=== PATIENT | female | born 1960 | race Caucasian/White ===

== ENCOUNTER → 2022-04-17 15:19 | Outpatient (CLI) | payer SELFPAY ==
--- NOTE | 2022-04-17 15:26 | DI.RAD.S_ITS ---
PROCEDURE: XR CHEST 1V INDICATIONS: CHEST XRAY TECHNIQUE: One view of the chest was acquired. COMPARISON: [facility], , CHEST 2 VIEW, 06/12/2014, 15:46. FINDINGS: Surgical changes and devices: None. Lungs and pleura: Lungs are clear. No pleural effusions or pneumothorax. Mediastinum: Mediastinal contours appear normal. Heart size is normal. Bones and chest wall: No suspicious bony lesions. Overlying soft tissues appear unremarkable. IMPRESSION: No acute cardiopulmonary abnormality. Dictated by: Brandin Salazar M.D. on 04/17/2022 at 17:27 Approved by: Brandin Salazar M.D. on 04/17/2022 at 17:28
== END ==
PROVIDERS: Family Provider Family Medicine; PCP Family Medicine; Referring Provider Nurse Practitioner; Visit Provider Nurse Practitioner
DX: Z01.818 Encounter for other preprocedural examination (principal)
CPT/HCPCS: 71045; 93005; 93010

== ENCOUNTER → 2022-04-24 14:11 | Outpatient (CLI) | payer SELFPAY ==
--- NOTE | 2022-04-24 | DI.MG.S_ITS ---
BILATERAL DIGITAL SCREENING MAMMOGRAM 3D/2D WITH CAD WITH AUGMENTATION: 04/24/2022 CLINICAL: Patient presents for routine screening. S/P bilateral augmentation. No prior exams were available for comparison. There are scattered areas of fibroglandular density in both breasts (category b / 25%-50% glandular tissue). Current study was also evaluated with a Computer Aided Detection (CAD) system. There is a 0.5 cm oval equal density focal asymmetry in the right breast at 9 o'clock middle depth. No other significant masses, calcifications, or other findings are seen in either breast. Bilateral implants are intact. IMPRESSION: INCOMPLETE: NEEDS ADDITIONAL IMAGING EVALUATION The 0.5 cm oval equal density focal asymmetry in the right breast resembles a cyst or a lymph node and is indeterminate. Additional views with possible ultrasound are recommended. Based on the Tyrer Cuzick model (a risk assessment model) the patient's lifetime risk is 4.1% and her 10 year risk is 1.8%. According to the ACR, ACS, and NCCN guidelines, an annual breast MRI exam along with mammogram is recommended if the patient's lifetime risk is 20% or greater. This exam was interpreted at Station ID: [id number]. NOTE: For mammograms, a report in lay terms will be sent to the patient. Approximately 15% of breast malignancies will not be visualized mammographically. In the management of a palpable breast mass, a negative mammogram must not discourage biopsy of a clinically suspicious lesion. Electronically Signed By: Marcos Luna M.D. aty/:04/24/2022 15:15:26 letter sent: Additional Imaging Needed ACR BI-RADS Category 0: Incomplete 3340F
== END ==
PROVIDERS: Family Provider Family Medicine; PCP Nurse Practitioner; Referring Provider Nurse Practitioner; Visit Provider Nurse Practitioner
DX: Z12.31 Encounter for screening mammogram for malignant neoplasm of breast (principal); Z98.82 Breast implant status
CPT/HCPCS: 77063; 77067

== ENCOUNTER 2023-11-15 18:23 | Emergency (ER) | payer MEDICARE, SELFPAY ==
[2023-11-15 18:28] VITALS: BP 152/66; PULSE 64; RESP 18; TEMP 36.8; O2SAT 99; BMI 22.8
--- NOTE | 2023-11-15 18:39 | DI.RAD.S_ITS ---
PROCEDURE: XR KUB INDICATIONS: fell asleep with sex toy in rectum. TECHNIQUE: One view of the abdomen acquired. COMPARISON: None. FINDINGS: Surgical changes and devices: There is a postoperative clip seen adjacent to the right pubis. Bowel: Bowel gas pattern is normal. No radiopaque foreign bodies are seen. Soft tissues: No suspicious abdominal calcifications. Visualized solid organ contours appear normal in size. Bones: No suspicious bony lesions. Age-appropriate bony degenerative changes are seen. IMPRESSION: No radiopaque foreign body is seen on this study. Dictated by: Juwan Cline M.D. on 11/15/2023 at 18:02 Approved by: Juwan Cline M.D. on 11/15/2023 at 18:03
--- NOTE | 2023-11-15 20:13 | ED.ABDPAIN ---
HPI - Abdominal Pain General Chief Complaint: Abdominal Pain Stated Complaint: toy stuck in rectum t-2 Time Seen by Provider: 11/15/23 18:37 Source: patient Mode of arrival: Ambulatory History of Present Illness HPI narrative: Patient presents concerned that there is a sex toy stuck in her rectum. Two days ago patient finished phone sex with her boyfriend and fell asleep. She states that she woke up and continued about her day, forgetting that she has been using the toy. Later in the day she remembered the toy's use but could not find the strings to the object. She tried to insert her finger but could not feel any object. She has not been able to find the toy and is concerned that it may be in her intestines. Reports several bowel movements today, but no foreign body found. Related Data Home Medications Medication Instructions Recorded Confirmed Acetaminophen/Butalbital/Caf 1 tab NG TIDP ##0 01/01/11 04/04/23 (FIORICET) IBUPROFEN (IBU) 400 mg PO TID ##0 01/01/11 04/04/23 Valtrex PO 04/04/23 04/04/23 estrogen vaginal cream PO 04/04/23 04/04/23 Allergies Allergy/AdvReac Type Severity Reaction Status Date / Time Penicillin Allergy Mild UNKNOWN Uncoded 11/15/23 18:36 Patient History Surgical History Status post tubal ligation Status post dilation and curettage Family History Brother Alcoholism Brother Multiple sclerosis Father Alcoholism Congestive heart failure Alcoholic dementia Mother Alcoholism Multiple sclerosis COPD (chronic obstructive pulmonary disease) Tobacco use disorder Social History Smoking Status: Former smoker Smoking Status: Former smoker Exam Initial Vital Signs Initial Vital Signs: Vital Signs Temperature 98.2 F 11/15/23 18:28 Pulse Rate 64 11/15/23 18:28 Respiratory Rate 18 11/15/23 18:28 Blood Pressure 152/66 H 11/15/23 18:28 Pulse Oximetry 99 11/15/23 18:28 Oxygen Delivery Method Room Air 11/15/23 18:28 Const: Awake, alert, no acute distress, nontoxic appearing GI: Soft, nontender, nondistended Rectal: Small nonthrombosed hemorrhoids present, tone intact, no foreign body palpated Skin: Warm, Dry, intact, no rashes Neuro: AO x3, CN II-XII grossly intact, moves all extremities Course Orders Ordered: ED Orders 11/15/23 20:13 CT abdomen pelvis wo con Stat Vital Signs Vital signs: Vital Signs - 8 hr 11/15/23 21:31 Pulse Rate 68 Respiratory Rate 15 Blood Pressure 151/73 H Pulse Oximetry 98 Oxygen Delivery Method Room Air MDM - Abdominal Pain Imaging Data CT scan - abdomen/pelvis: Radiologist's Impression: PROCEDURE: CT ABDOMEN PELVIS WO CON INDICATIONS: PT STATES RECTAL FOREIGN BODY, NEG XR TECHNIQUE: Axial sections were acquired from the lung bases to the pubic symphysis. Coronal and sagittal reformats were performed. For radiation dose reduction, the following was used: automated exposure control, adjustment of mA and/or kV according to patient size. COMPARISON: None. FINDINGS: Image quality: Diagnostic. Lower Chest: No significant findings. URINARY: Right Kidney: No stones or hydronephrosis. Right Ureter: No hydroureter. Left Kidney: No stones or hydronephrosis. Left Ureter: No hydroureter. Bladder: Normal wall thickness. No stones. ABDOMEN: Liver: No contour-deforming solid mass. Gallbladder: No radiopaque gallstones or wall thickening. Biliary ducts: No biliary dilation. Pancreas: No ductal dilation. Spleen: Size is within normal limits. Adrenal Glands: No adrenal nodules. Stomach and Bowel: Normal colonic caliber, without significant wall thickening. Colonic diverticulosis without acute inflammation. Questionable increased soft tissue fullness in the rectum. No hyperdense foreign body visualized. Peritoneum: No abnormal intraperitoneal fluid. No free air. Ventral Wall: No hernia. Abdominal Nodes: No enlarged retroperitoneal or mesenteric lymph nodes. Vessels: Aorta and inferior vena cava are normal in size. PELVIS: Pelvic Organs: Unremarkable. Pelvic Nodes: Unremarkable. Miscellaneous: No inguinal hernias are seen. Bones: Unremarkable. Degenerative changes of visualized spine without acute vertebral body compression fracture. IMPRESSION: Questionable increased soft tissue fullness in the rectum, favored to be physiologic, however foreign body cannot be definitively excluded. No hyperdense foreign body visualized rectum or colon. Approved by: Staci Boone M.D.,Ph.D. on 11/15/2023 at 21:00 [facility] Narrative Medical decision making narrative: Possible rectal foreign body. No obvious physical exam findings. Digital sweep of rectal vault with no palpated foreign body. No foreign body seen on x-ray or CT. Patient informed of imaging findings, she will continue to look for the object at home. Discharge Plan Departure Patient Disposition: Home Clinical Impression: Feared condition not demonstrated Instructions: DI for General Condition Activity Restrictions/Additional Instructions: There was no foreign body seen on x-ray or CT imaging. I do not know where the object is, but it was no where in the GI tract. Prescriptions: No Action estrogen vaginal cream PO Valtrex PO Acetaminophen/Butalbital/Caf (FIORICET) 1 tab NG TIDP Qty: 0 IBUPROFEN (IBU) 400 mg PO TID Qty: 0 Referrals: Cata Maldonado ARNP [Primary Care Provider] - Stand Alone Forms: Patient Portal/API
[2023-11-15 21:31] VITALS: BP 151/73; PULSE 68; RESP 15; O2SAT 98
== END 2023-11-15 21:32 | disposition home or self-care (01) ==
PROVIDERS: Emergency Provider Emergency Medicine; Family Provider Family Medicine; PCP Nurse Practitioner
DX: T18.5XXA Foreign body in anus and rectum, initial encounter (principal)
CPT/HCPCS: 74018; 74176; 99284

== ENCOUNTER → 2024-11-24 16:34 | Outpatient (CLI) | payer MEDICARE, SELFPAY ==
[2024-11-24 17:54] LABS: Add Manual Diff / Slide Review NO; Basophils Absolute Auto 100 /uL (0-100); Basophils Percent Auto 0.7 % (0-2); Eosinophils Absolute Auto 200 /uL (0-450); Eosinophils Percent Auto 3.1 % (2-4); Hematocrit 43.7 % (36-46); Hemoglobin 14.6 g/dL (12.0-16.0); Lymphocytes Absolute Auto 1500 /uL (1100-4500); Lymphocytes Percent Auto 21.9 % (25-40); Mean Corpuscular HGB Conc 33.3 % (30-36); Mean Corpuscular Hemoglobin 30.4 PG (26-34); Mean Corpuscular Volume 91.1 fL (80-100); Monocytes Absolute Auto 800 /uL (0-900); Monocytes Percent Auto 11.9 % (3-14); Neutrophils Absolute Auto 4200 /uL (1500-7000); Neutrophils Percent Auto 62.4 % (50-75); Platelet Count 257 X10^3/uL (150-400); Red Cell Distribution Width 13.3 % (11.6-14.8); White Blood Cell Count 6.8 X10^3/uL (4.5-11.0)
[2024-11-24 18:13] LABS: Alanine Aminotransferase 35 IU/L (<35); Albumin 4.6 g/dL (3.5-5.0); Albumin Globulin Ratio 1.8 (1.0-2.8); Alkaline Phosphatase 92 U/L (38-126); Aspartate Aminotransferase 35 IU/L (14-36); BUN Creatinine Ratio 27.5 (6-22); Bilirubin Total 0.5 mg/dL (0.2-1.3); Blood Urea Nitrogen 19 mg/dL (7-17); Calcium 9.6 mg/dL (8.4-10.2); Carbon Dioxide 24 mmol/L (22-32); Chloride 106 mmol/L (98-107); Estimated Glomerular Filt Rate > 60 mL/min (>60); Globulin 2.5 g/dL (1.7-4.1); Glucose 93 mg/dL (70-99); HEMOLYSIS < 15 (0-50); Potassium 4.6 mmol/L (3.4-5.1); Sodium 138 mmol/L (137-145); Total Protein 7.1 g/dL (6.3-8.2)
== END ==
PROVIDERS: Family Provider Family Medicine; Referring Provider Physician Assistant; Visit Provider Physician Assistant
DX: R15.9 Full incontinence of feces (principal); K52.9 Noninfective gastroenteritis and colitis, unspecified
CPT/HCPCS: 36415; 80053; 84443; 85025

== ENCOUNTER → 2024-12-01 13:34 | Outpatient (CLI) | payer MEDICARE, SELFPAY | PROVIDERS: Family Provider Family Medicine; Referring Provider Physician Assistant; Visit Provider Physician Assistant | DX: R19.5 Other fecal abnormalities (principal); K52.9 Noninfective gastroenteritis and colitis, unspecified | CPT/HCPCS: 83993; 87177; 87324; 87338 ==

== ENCOUNTER 2024-12-30 09:27 | Emergency (ER) | payer MEDICARE, SELFPAY ==
[2024-12-30] VITALS (19 sets, daily range): BP systolic 131–174; BP diastolic 61–96; PULSE 59–81; RESP 16–20; TEMP 37; O2SAT 95–100; BMI 22.0
--- NOTE | 2024-12-30 09:53 | ED.GENADULT ---
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 The patient reports experiencing diarrhea for approximately 4.5 months, with symptoms worsening over the past 5-6 weeks. She describes having explosive diarrhea and leakage, with 18 episodes in the last 24 hours. The patient also complains of rectal soreness by the end of the day. Additionally, she reports feeling weak, confused, and dizzy, with body aches all over, particularly in her arms. These severe symptoms have been ongoing for about two weeks. The patient mentions experiencing shortness of breath for about a week. She denies fever, blood in stool, abdominal pain, nausea, or vomiting. The patient was seen at a clinic three weeks ago and subsequently diagnosed with Giardia and H. pylori on December 14. She has been on treatment for these conditions since then, finishing a course of Flagyl and with tetracycline started three days ago. The patient reports taking high doses of qrvy-hqw-zsehhzd Imodium to manage her symptoms. She mentions a trip to [place] in June but is unsure if it's related to her current condition. The patient has three dogs at home and uses city water. She denies alcohol consumption or recreational drug use. The patient's last blood work was done on December 14, and she was supposed to establish primary care today. Related Data Home Medications ?Medication ?Instructions ?Recorded ?Confirmed IBUPROFEN (IBU) 400 mg PO TID ##0 01/01/11 11/24/24 estrogen vaginal cream PO 04/04/23 11/24/24 acyclovir 400 mg tablet 400 mg PO DAILY 11/24/24 11/24/24 smoluryyoo-yhddeieqdcerp-gqwkytna 1 cap PO BID 11/24/24 11/24/24 50 mg-300 mg-40 mg capsule Allergies Allergy/AdvReac Type Severity Reaction Status Date / Time Penicillin Allergy Mild UNKNOWN Uncoded 12/30/24 09:46 Patient History Surgical History Status post tubal ligation Status post dilation and curettage Family History Brother Alcoholism Brother Multiple sclerosis Father Alcoholism Congestive heart failure Alcoholic dementia Mother Alcoholism Multiple sclerosis COPD (chronic obstructive pulmonary disease) Tobacco use disorder Exam Narrative Exam Narrative: VS as noted above Focused physical exam as follows: General: Well developed, well nourished, no acute distress HEENT: pink palpebral conjunctiva, anicteric sclera, SCOUT, dry mucous membranes, no JVD, no cervical lymphadenopathy Lungs: no respiratory distress, clear to auscultation without wheezes or crackles; equal breath sounds Heart: normal rate, regular rhythm, no appreciable murmurs Abdomen: soft, nontender, no rebound or rigidity Musculoskeletal: no gross deformities with full ROM in all extremities, no pedal edema Skin: pink, warm; no rashes Neuro: ?AAOx3, GCS 15, nonfocal exam Psyche: no SI/HI, normal affect Initial Vital Signs Initial Vital Signs: Vital Signs Pulse Oximetry 96 12/30/24 09:32 Course Orders Ordered: Discontinued Medications Sodium Chloride (Normal Saline 0.9%) 1,000 mls @ 1,000 mls/hr IV BOLUS ONE Stop: 12/30/24 11:16 Last Infusion: 12/30/24 12:11 Dose: Infused Documented By: Admin: 12/30/24 10:40 Dose: 1,000 mls/hr Documented By: IZAIAH Sodium Chloride (Normal Saline 0.9%) 1,000 mls @ 1,000 mls/hr IV BOLUS ONE Stop: 12/30/24 12:05 Last Infusion: 12/30/24 13:37 Dose: Infused Documented By: Admin: 12/30/24 12:12 Dose: 1,000 mls/hr Documented By: IZAIAH Vital Signs Vital signs: Vital Signs - 8 hr 12/30/24 09:32 12/30/24 09:33 12/30/24 09:33 Temperature Pulse Rate 78 Respiratory Rate Blood Pressure 174/79 H Pulse Oximetry 96 97 Oxygen Delivery Method 12/30/24 09:45 12/30/24 10:32 12/30/24 10:33 Temperature 98.6 F Pulse Rate 76 Respiratory Rate 20 Blood Pressure 174/79 H 136/61 Pulse Oximetry 100 97 Oxygen Delivery Method Room Air 12/30/24 10:33 12/30/24 11:07 12/30/24 11:08 Temperature Pulse Rate 59 L 63 Respiratory Rate Blood Pressure 139/63 Pulse Oximetry 96 95 Oxygen Delivery Method 12/30/24 11:08 12/30/24 11:30 12/30/24 11:30 Temperature Pulse Rate 63 81 Respiratory Rate Blood Pressure 131/93 H Pulse Oximetry 97 97 Oxygen Delivery Method 12/30/24 11:55 12/30/24 11:55 12/30/24 12:00 Temperature Pulse Rate 73 Respiratory Rate Blood Pressure 165/77 H 139/65 Pulse Oximetry 98 Oxygen Delivery Method 12/30/24 12:00 12/30/24 12:09 12/30/24 12:10 Temperature Pulse Rate 64 62 Respiratory Rate Blood Pressure 138/64 Pulse Oximetry 97 97 Oxygen Delivery Method Medical Decision Making Lab Data 12/30/24 09:55 12/30/24 09:55 Labs: Lab Results 12/30/24 12/30/24 Range/Units 09:55 11:12 WBC 10.8 (4.5-11.0) X10^3/uL RBC 5.14 (4.0-5.2) X10^6/uL Hgb 15.7 (12.0-16.0) g/dL Hct 45.8 (36-46) % MCV 89.2 (80-100) fL MCH 30.5 (26-34) PG MCHC 34.2 (30-36) % RDW 13.4 (11.6-14.8) % Plt Count 275 (150-400) X10^3/uL Neut % (Auto) 71.0 (50-75) % Lymph % (Auto) 17.0 L (25-40) % Norman % (Auto) 9.8 (3-14) % Eos % (Auto) 1.6 L (2-4) % Baso % (Auto) 0.6 (0-2) % Neut # (Auto) 7700 H (1654-5786) /uL Lymph # (Auto) 1800 (0176-2977) /uL Norman # (Auto) 1100 H (0-900) /uL Eos # (Auto) 200 (0-450) /uL Baso # (Auto) 100 (0-100) /uL Sodium 135 L (137-145) mmol/L Potassium 4.1 (3.4-5.1) mmol/L Chloride 104 (98-107) mmol/L Carbon Dioxide 22 (22-32) mmol/L BUN 13 (7-17) mg/dL Creatinine 0.61 (0.52-1.04) mg/dL Estimated GFR > 60 (>60) mL/min BUN/Creatinine Ratio 21.3 (6-22) Glucose 116 H (70-99) mg/dL Lactate 0.9 (0.7-2.1) mmol/L Calcium 9.4 (8.4-10.2) mg/dL Total Bilirubin 0.6 (0.2-1.3) mg/dL AST 53 H (14-36) IU/L ALT 34 (<35) IU/L Alkaline Phosphatase 119 (38-126) U/L Total Creatine Kinase 60 (30-135) U/L Troponin I < 0.012 (0.01-0.034) ng/mL Total Protein 7.7 (6.3-8.2) g/dL Albumin 4.7 (3.5-5.0) g/dL Globulin 3.0 (1.7-4.1) g/dL Albumin/Globulin Ratio 1.6 (1.0-2.8) Lipase 929 H (23-300) U/L TSH 1.11 (0.47-4.68) uIU/mL Urine Color Yellow Urine Appearance Clear Urine pH 6.0 (4.5-8.0) Ur Specific [place] <=1.005 (1.000-1.035) Urine Protein Negative (Negative) Urine Glucose (UA) Negative (Negative) g/dL Urine Ketones Negative (NEGATIVE) Urine Occult Blood Negative (Negative) Urine Nitrate Negative (Negative) Urine Bilirubin Negative (NEGATIVE) Urine Urobilinogen 0.2 (0.2) E.U./dL Ur Leukocyte Esterase Negative (NEGATIVE) Urine RBC 0-1/hpf (0-5/HPF) Urine WBC 0-1/hpf (0-5/HPF) Ur Squamous Epith Cells 1-5 /hpf (0-5/HPF) Urine Bacteria Occasional (0-1) (None) Ur Culture Indicated? Cult not indicated Vol Urine Centrifuged 10ml (spun) Imaging Data CT scan - abdomen/pelvis: Radiologist's Impression: IMPRESSION: No significant abnormality of the pancreas can be seen at this time. Additional findings: Fatty liver infiltration Diverticulosis, without active diverticulitis ECG Data Interpretation: 1032 - sinus tonja @ 50; no STTW changes; QTc 406 MDM Narrative Medical decision making narrative: HPI, PMHx, PSHx, Medication list, Allergies, ROS and Focused exam were reviewed above. ?Differential diagnosis as noted below. ?Social determinants affecting care considered. ?All of these were taken into consideration warranting above listed work up. ?Consultations as deemed necessary were documented below (if listed). Labs (if ordered and noted) were independently reviewed by me. Imaging studies (if ordered and noted) were independently reviewed by me EKG (if noted) was independently reviewed by me External documents (if reviewed) are documented above Initial VS noted above. ? Differential diagnosis considered include (but not limited to) the following: gastroenteritis, colitis (infectious vs. inflammatory), liver or kidney failure, electrolyte imbalance, sepsis, dehydration, UTI, pyelo, adverse effect of illicit drug/ETOH, symptomatic anemia, cardiac dysrhythmia, CHF, pancreatitis, cholelithiasis/cystitis, diverticulitis Pt interviewed and examined. IVF bolus given while awaiting studies. Bedside EKG showed no ST elevation or ectopy. Work up initiated to include stool studies. Labs reviewed - lipase is elevated. She has no real abdominal pain. Denies ETOH use. LFTs are normal. CT abd/pelvis ordered to further evaluate. CT unremarkable. Additional IVF bolus ordered. Pt unable to provide a stool sample at this time. Offered to watch in the ER and await stool sample but pt does not want to wait any longer. Advised of need to follow up with local provider for repeat stool study. Stable for discharge with return precautions. Discharge Plan Departure Patient Disposition: Home Clinical Impression: Chronic diarrhea Pancreatitis Qualifiers: Chronicity: acute Pancreatitis type: unspecified pancreatitis type Acute pancreatitis complication: no infection or necrosis Qualified Code(s): K85.90 - Acute pancreatitis without necrosis or infection, unspecified Activity Restrictions/Additional Instructions: Your work up today showed evidence of dehydration and pancreatitis although no specific cause of your pancreatitis was found. You were unable to provide a stool sample today. Drink plenty of fluids. Eat at regular intervals. Follow up with a local provider for further evaluation to include another stool study and to recheck your lipase level. Return to the ER if with worsening symptoms. Prescriptions: No Action estrogen vaginal cream PO IBUPROFEN (IBU) 400 mg PO TID Qty: 0 acyclovir 400 mg tablet 400 mg PO DAILY lofivhzduf-fjqeeezajsuqc-mlgb 50-300-40 mg capsule 1 cap PO BID Stand Alone Forms: Patient Portal/API
--- NOTE | 2024-12-30 10:31 | EKG_ITS ---
[place] [address] [address] [place] [id number] Test Date: 2024-12-30 Pat Name: Bisi Juárez Department: [facility] Room: Gender: Female Technician'S Helper: SERA : 1960 Requested By: Order Number: [id number] Reading MD: Ruben Palomo Measurements Intervals [place] Rate: 50 P: 38 [place]: 170 QRS: 9 QRSD: 88 T: 24 QT: 446 QTc: 406 Interpretive Statements Sinus bradycardia Minimal voltage criteria for LVH, may be normal variant ( R in aVL ) Cannot rule out Anterior infarct , age undetermined Electronically Signed On 01-13-2025 8:10:03 PDT by Ruben Palomo
[2024-12-30] MEDS: SODIUM CHLORIDE 0.9% 1,000 ML 1000 ML IV ×2 (10:40→12:12)
[2024-12-30 10:47] LABS: Add Manual Diff / Slide Review NO; Hematocrit 45.8 % (36-46); Hemoglobin 15.7 g/dL (12.0-16.0); Lymphocytes Absolute Auto 1800 /uL (1100-4500); Mean Corpuscular HGB Conc 34.2 % (30-36); Mean Corpuscular Hemoglobin 30.5 PG (26-34); Mean Corpuscular Volume 89.2 fL (80-100); Platelet Count 275 X10^3/uL (150-400)
[2024-12-30 10:54] LABS: Alanine Aminotransferase 34 IU/L (<35); Albumin 4.7 g/dL (3.5-5.0); Albumin Globulin Ratio 1.6 (1.0-2.8); Alkaline Phosphatase 119 U/L (38-126); Blood Urea Nitrogen 13 mg/dL (7-17); Calcium 9.4 mg/dL (8.4-10.2); Carbon Dioxide 22 mmol/L (22-32); Chloride 104 mmol/L (98-107); Creatine Kinase 60 U/L (30-135); Estimated Glomerular Filt Rate > 60 mL/min (>60); Globulin 3.0 g/dL (1.7-4.1); Glucose 116 mg/dL (70-99); HEMOLYSIS 22 (0-50); Lipase 929 U/L (23-300); Potassium 4.1 mmol/L (3.4-5.1); Sodium 135 mmol/L (137-145); Total Protein 7.7 g/dL (6.3-8.2)
[2024-12-30 10:55] LABS: Lactate (Lactic Acid) 0.9 mmol/L (0.7-2.1)
--- NOTE | 2024-12-30 11:00 | DI.CT.S_ITS ---
PROCEDURE: CT ABDOMEN PELVIS W CON INDICATIONS: pancreatitis TECHNIQUE: After the administration of intravenous contrast, axial sections acquired from the lung bases to the pubic symphysis. Coronal and sagittal reformats were performed. For radiation dose reduction, the following was used: automated exposure control, adjustment of mA and/or kV according to patient size. COMPARISON: [facility], CR, XR KUB, 11/15/2023, 18:45. [facility], CT, CT ABDOMEN PELVIS WO CON, 11/15/2023, 20:20. FINDINGS: Image quality: Diagnostic. Lower Chest: No significant findings. ABDOMEN: Liver: No solid mass. Diffuse fatty liver infiltration is noted. Gallbladder: No radiopaque gallstones or wall thickening. Biliary ducts: No biliary dilation. Pancreas: No ductal dilation. No significant peripancreatic inflammatory change can be seen. No peripancreatic fluid collections are seen. Spleen: Size is within normal limits. Adrenal Glands: No adrenal nodules. Kidneys and Ureters: No hydronephrosis. No solid mass. No complex renal cystic lesion which requires follow up. Stomach and Bowel: Normal colonic caliber, without significant wall thickening. Colonic diverticulosis is seen, without findings of active diverticulitis. No dilated loops of small bowel are seen. Peritoneum: No abnormal intraperitoneal fluid. No free air. Ventral Wall: No significant ventral hernia. Abdominal Nodes: No retroperitoneal or mesenteric adenopathy by size criteria. Vessels: Aorta and inferior vena cava are normal in size. Atherosclerotic calcification is noted. PELVIS: Pelvic Organs: No adnexal masses are seen on either side. Bladder: No bladder wall thickening, accounting for underdistention. Pelvic Nodes: No enlarged lymph nodes. Miscellaneous: No inguinal hernias are seen. Bones: No aggressive osseous abnormality. Mild levoconvex scoliotic curvature is noted. Extensive degenerative changes are seen, particular involving the lumbar spine. IMPRESSION: No significant abnormality of the pancreas can be seen at this time. Additional findings: Fatty liver infiltration Diverticulosis, without active diverticulitis Dictated by: Juwan Cline M.D. on 12/30/2024 at 11:33 Approved by: Juwan Cline M.D. on 12/30/2024 at 11:35
[2024-12-30 11:05] LABS: Troponin I < 0.012 ng/mL (0.01-0.034)
[2024-12-30 11:20] LABS: Appearance Urine UA CLEAR; Bilirubin Urine UA NEGATIVE (NEGATIVE); Color Urine UA YELLOW; Glucose Urine UA NEGATIVE (Negative); Ketones Urine UA NEGATIVE (NEGATIVE); Leukocyte Esterase Urine UA NEGATIVE (NEGATIVE); Nitrite Urine UA NEGATIVE (Negative); Occult Blood Urine UA NEGATIVE (Negative); Protein Urine UA NEGATIVE (Negative); Specific Gravity Urine UA <=1.005 (1.000-1.035); Urobilinogen Urine UA 0.2 E.U./dL (0.2)
[2024-12-30 11:21] LABS: pH Urine UA 6.0 (4.5-8.0)
[2024-12-30 11:24] LABS: Thyroid Stimulating Hormone 1.11 uIU/mL (0.47-4.68)
[2024-12-30 11:26] LABS: Culture Indicated Urine Cult Not Indicated
--- NOTE | 2024-12-30 12:12 | PC.NURSE ---
Pt c/o pain at Right AC IV site. Rn
--- NOTE | 2024-12-30 12:13 | PC.NURSE ---
Pt c/o pain at right AC IV site and requested RN change IV site. 20G IV successfully placed in Left AC and right ac IV site removed. Pt a&Ox4 and states that left AC IV site is pain free.
== END 2024-12-30 14:47 | disposition home or self-care (01) ==
PROVIDERS: Emergency Provider Emergency Medicine; Family Provider Family Medicine
DX: K85.90 Acute pancreatitis without necrosis or infection, unspecified (principal); K52.9 Noninfective gastroenteritis and colitis, unspecified; R53.1 Weakness
CPT/HCPCS: 36415; 74177; 80053; 81001; 82550; 83605; 83690; 84443; 84484; 85025; 93005; 96360; 96361; 99284; Q9967

== ENCOUNTER → 2024-12-31 11:53 | Outpatient (CLI) | payer MEDICARE, SELFPAY | PROVIDERS: Family Provider Family Medicine; PCP Family Medicine; Referring Provider Family Medicine; Visit Provider Family Medicine | DX: K52.9 Noninfective gastroenteritis and colitis, unspecified (principal) | CPT/HCPCS: 87329 ==

== ENCOUNTER 2025-01-01 09:22 | Emergency (ER) | payer MEDICARE, SELFPAY ==
[2025-01-01] VITALS (10 sets, daily range): BP systolic 124–158; BP diastolic 56–70; PULSE 65–75; RESP 16–20; TEMP 36.5; O2SAT 96–98; BMI 22.0
[2025-01-01 10:18] LABS: Add Manual Diff / Slide Review NO; Hematocrit 41.8 % (36-46); Hemoglobin 14.4 g/dL (12.0-16.0); Lymphocytes Absolute Auto 1500 /uL (1100-4500); Mean Corpuscular HGB Conc 34.6 % (30-36); Mean Corpuscular Hemoglobin 30.6 PG (26-34); Mean Corpuscular Volume 88.6 fL (80-100); Platelet Count 223 X10^3/uL (150-400)
[2025-01-01 10:33] LABS: Alanine Aminotransferase 23 IU/L (<35); Albumin 4.2 g/dL (3.5-5.0); Albumin Globulin Ratio 1.6 (1.0-2.8); Alkaline Phosphatase 98 U/L (38-126); Blood Urea Nitrogen 18 mg/dL (7-17); Calcium 8.8 mg/dL (8.4-10.2); Carbon Dioxide 22 mmol/L (22-32); Chloride 105 mmol/L (98-107); Estimated Glomerular Filt Rate > 60 mL/min (>60); Globulin 2.7 g/dL (1.7-4.1); Glucose 102 mg/dL (70-99); HEMOLYSIS 21 (0-50); Lipase 346 U/L (23-300); Potassium 3.4 mmol/L (3.4-5.1); Sodium 135 mmol/L (137-145); Total Protein 6.9 g/dL (6.3-8.2)
--- NOTE | 2025-01-01 12:26 | ED.NAVMDI ---
HPI - Nausea/Vomiting/Diarrhea General Chief complaint: Nausea/Vomiting/Diarrhea Stated complaint: Weakness, lethargy Time Seen by Provider: 01/01/25 10:05 Source: patient Mode of arrival: Ambulatory History of Present Illness HPI Narrative: 64 years old female came today complaining of diarrhea for the last 5-6 months and worsening in the last 2 weeks. She has an appointment to see bottling room worker this coming week. She was in our ED on 12/30/[address] scan abdomen and pelvis showed no acute finding but elevation of the lipase. She had been taking and Imodium. She denied any fever, chills, nausea vomiting, abdominal pain, blood in his stool, dizziness, loss of consciousness. Her bowel movement can be 10-18 times a day. She has positive for Giardia and H pylori but got treated. Last CT scan abdomen and pelvis on 12/30/2024 showed IMPRESSION: No significant abnormality of the pancreas can be seen at this time. Additional findings: Fatty liver infiltration, Diverticulosis, without active diverticulitis. Related Data Home Medications ?Medication ?Instructions ?Recorded ?Confirmed IBUPROFEN (IBU) 400 mg PO TID ##0 01/01/11 11/24/24 estrogen vaginal cream PO 04/04/23 11/24/24 acyclovir 400 mg tablet 400 mg PO DAILY 11/24/24 11/24/24 [id number] 1 cap PO BID 11/24/24 11/24/24 50 mg-300 mg-40 mg capsule Allergies Allergy/AdvReac Type Severity Reaction Status Date / Time Penicillin Allergy Mild UNKNOWN Uncoded 01/01/25 10:13 Review of Systems Review of Systems Narrative: Positive for diarrhea, generalized weakness. Negative for fever, chills, nausea vomiting, abdominal pain, blood in his stool, dizziness, loss of consciousness. Patient History Surgical History Status post tubal ligation Status post dilation and curettage Family History Brother Alcoholism Brother Multiple sclerosis Father Alcoholism Congestive heart failure Alcoholic dementia Mother Alcoholism Multiple sclerosis COPD (chronic obstructive pulmonary disease) Tobacco use disorder Exam Initial Vital Signs Initial Vital Signs: Vital Signs Temperature 97.7 F 01/01/25 10:00 Pulse Rate 75 01/01/25 10:00 Respiratory Rate 16 01/01/25 10:00 Blood Pressure 156/67 H 01/01/25 10:00 Pulse Oximetry 97 01/01/25 10:00 Oxygen Delivery Method Room Air 01/01/25 10:00 Const General: cooperative, comfortable, well developed and No acute distress Neck Neck: supple Resp Other: Clear to auscultation bilaterally. No rhonchi or wheezing. No respiratory distress. Cardio Other: Normal S1-S2 without murmur. Regular rhythm. GI Other: Soft nontender. No guarding or rebound tenderness or distention. Skin General: no rashes or lesions noted Neuro Other: Alert oriented x4. Extrem Other: No pedal edema on both legs. Course Orders Ordered: Discontinued Medications Lactated Ringer's (Lactated Ringers) 1,000 mls @ 1,000 mls/hr IV BOLUS ONE Stop: 01/01/25 12:47 Last Infusion: 01/01/25 14:00 Dose: Infused Documented By: Admin: 01/01/25 12:40 Dose: 1,000 mls/hr Documented By: LEANNA Sodium Chloride (Normal Saline 0.9%) 500 mls @ 1,000 mls/hr IV BOLUS ONE Stop: 01/01/25 14:26 Last Infusion: 01/01/25 14:51 Dose: Infused Documented By: Admin: 01/01/25 14:04 Dose: 1,000 mls/hr Documented By: AMRITA Magnesium Oxide (Magnesium Oxide 400 Mg Tablet) 400 mg PO NOW ONE Stop: 01/01/25 12:44 Last Admin: 01/01/25 12:55 Dose: 400 mg Documented By: LEANNA Ondansetron HCl (Ondansetron 4 Mg/2 Ml Inj) 4 mg IV NOW PRN PRN Reason: Nausea And Vomiting Ondansetron HCl (Ondansetron 4 Mg Odt) 4 mg PO NOW PRN PRN Reason: Nausea And Vomiting Potassium Chloride (Potassium Chloride 20 Meq/15 Ml Udc) 40 meq PO NOW ONE Stop: 01/01/25 12:26 Last Admin: 01/01/25 12:41 Dose: 40 meq Documented By: LEANNA Vital Signs Vital signs: Vital Signs - 8 hr 01/01/25 10:00 01/01/25 11:45 01/01/25 12:15 Temperature 97.7 F Pulse Rate 75 70 65 Respiratory Rate 16 16 20 Blood Pressure 156/67 H 158/67 H 155/70 H Pulse Oximetry 97 97 97 Oxygen Delivery Method Room Air 01/01/25 12:30 01/01/25 13:00 Temperature Pulse Rate 68 71 Respiratory Rate 18 16 Blood Pressure 141/60 H 147/69 H Pulse Oximetry 96 96 Oxygen Delivery Method Room Air MDM - Nausea/Vomiting/Diarrhea Lab Data 01/01/25 10:00 01/01/25 10:00 Labs: Lab Results 01/01/25 Range/Units 10:00 WBC 6.6 (4.5-11.0) X10^3/uL RBC 4.72 (4.0-5.2) X10^6/uL Hgb 14.4 (12.0-16.0) g/dL Hct 41.8 (36-46) % MCV 88.6 (80-100) fL MCH 30.6 (26-34) PG MCHC 34.6 (30-36) % RDW 13.4 (11.6-14.8) % Plt Count 223 (150-400) X10^3/uL Neut % (Auto) 62.5 (50-75) % Lymph % (Auto) 23.3 L (25-40) % [place] % (Auto) 11.7 (3-14) % Eos % (Auto) 1.7 L (2-4) % Baso % (Auto) 0.8 (0-2) % Neut # (Auto) 4100 (4797-5058) /uL Lymph # (Auto) 1500 (2479-1779) /uL [place] # (Auto) 800 (0-900) /uL Eos # (Auto) 100 (0-450) /uL Baso # (Auto) 100 (0-100) /uL Sodium 135 L (137-145) mmol/L Potassium 3.4 (3.4-5.1) mmol/L Chloride 105 (98-107) mmol/L Carbon Dioxide 22 (22-32) mmol/L BUN 18 H (7-17) mg/dL Creatinine 0.64 (0.52-1.04) mg/dL Estimated GFR > 60 (>60) mL/min BUN/Creatinine Ratio 28.1 H (6-22) Glucose 102 H (70-99) mg/dL Calcium 8.8 (8.4-10.2) mg/dL Magnesium 1.6 (1.6-2.3) mg/dL Total Bilirubin 0.5 (0.2-1.3) mg/dL AST 36 (14-36) IU/L ALT 23 (<35) IU/L Alkaline Phosphatase 98 (38-126) U/L Total Protein 6.9 (6.3-8.2) g/dL Albumin 4.2 (3.5-5.0) g/dL Globulin 2.7 (1.7-4.1) g/dL Albumin/Globulin Ratio 1.6 (1.0-2.8) Lipase 346 H D (23-300) U/L Urine Dip Bedside Urine Glucose Negative Bedside Urine Bilirubin - Negative Bedside Urine Ketone - Negative Urine Specific [place] 1.010 Bedside Urine Occult Blood - Negative Bedside Urine pH 6.0 Bedside Urine Protein - Negative Bedside Urine Urobilinogen - Negative Bedside Urine Nitrite - Negative Bedside Urine Leukocytes - Negative Esterase MDM Narrative Medical decision making narrative: 64 years old female came today complaining of generalized weakness after has had chronic diarrhea for the last 5-6 month. She has an appointment coming this week to see her bottling room worker. I reviewed the previous CT scan abdomen and pelvis on 12/30/2024. She denied any abdominal pain, fever, nausea vomiting. Her CV exam, lung exam, abdominal exam were normal. Her CBC showed normal hemoglobin, WBC without leukocytosis. Her CMP shows sodium 135 otherwise normal CMP. Her lipase went down from 929 to 346. Her magnesium 1.6. Her UA was normal. She was given IV Ringer lactate, normal saline, potassium and magnesium oral. Return to the ED precautions was given. Discharge Plan Departure Patient Disposition: Home Clinical Impression: Dehydration, Chronic diarrhea Instructions: Diarrhea (Alternative Therapy), Diarrhea, DI for Dehydration -- Adult Activity Restrictions/Additional Instructions: Please follow-up with your bottling room worker as scheduled this week. Please drink plenty of electrolyte fluid. Please come back to the emergency room if any worsening symptoms including but not limited to worsening abdominal pain, fever, chills, nausea vomiting, lightheadedness. Prescriptions: No Action estrogen vaginal cream PO IBUPROFEN (IBU) 400 mg PO TID Qty: 0 acyclovir 400 mg tablet 400 mg PO DAILY [id number] 50-300-40 mg capsule 1 cap PO BID Referrals: Oscar Shah DO [Primary Care Provider, Family Practice] Stand Alone Forms: Patient Portal/API
[2025-01-01 12:38] LABS: Magnesium 1.6 mg/dL (1.6-2.3)
[2025-01-01] MEDS: LACTATED RINGERS 1,000 ML 1000 ML IV (12:40)
[2025-01-01] MEDS: POTASSIUM CHLORIDE 20 MEQ/15 ML UDC 40 MEQ PO (12:41)
[2025-01-01] MEDS: MAGNESIUM OXIDE 400 MG TABLET PO (12:55)
--- NOTE | 2025-01-01 13:26 | PC.NURSE ---
patient states she has been feeling so tired and is taking about three times as imodium to keep the diarrhea stopped, I asked if she had been doing that every day for about a month, she said yes, we went over education about too much loperamide and possible central nervous system depression, spoke about other options that dont have the same side affects and also following the instructions on the box when she is taking it.
[2025-01-01] MEDS: SODIUM CHLORIDE 0.9% 500 ML 1000 ML IV (14:04)
== END 2025-01-01 14:53 | disposition home or self-care (01) ==
PROVIDERS: Emergency Provider Emergency Medicine; Family Provider Family Medicine; PCP Family Medicine
DX: E86.0 Dehydration (principal); K52.9 Noninfective gastroenteritis and colitis, unspecified
CPT/HCPCS: 36415; 80053; 81003; 83690; 83735; 85025; 96360; 96361; 99284

== ENCOUNTER → 2025-01-13 14:11 | Outpatient (CLI) | payer MEDICARE, SELFPAY | PROVIDERS: PCP Family Medicine; Referring Provider Family Medicine; Visit Provider Family Medicine | DX: K52.9 Noninfective gastroenteritis and colitis, unspecified (principal) | CPT/HCPCS: 87329 ==

== ENCOUNTER → 2025-05-23 10:09 | Outpatient (CLI) | payer MEDICARE, SELFPAY ==
[2025-05-23 11:57] LABS: Appearance Urine UA CLEAR; Bilirubin Urine UA NEGATIVE (NEGATIVE); Color Urine UA YELLOW; Glucose Urine UA NEGATIVE (Negative); Ketones Urine UA NEGATIVE (NEGATIVE); Leukocyte Esterase Urine UA NEGATIVE (NEGATIVE); Nitrite Urine UA NEGATIVE (Negative); Occult Blood Urine UA NEGATIVE (Negative); Protein Urine UA NEGATIVE (Negative); Specific Gravity Urine UA 1.025 (1.000-1.035); Urobilinogen Urine UA 0.2 E.U./dL (0.2)
[2025-05-23 11:59] LABS: pH Urine UA 5.5 (4.5-8.0)
[2025-05-23 12:04] LABS: Culture Indicated Urine Cult Not Indicated
== END ==
PROVIDERS: PCP Family Medicine; Referring Provider Obstetrics & Gynecology Gynecology; Visit Provider Obstetrics & Gynecology Gynecology
DX: N99.3 Prolapse of vaginal vault after hysterectomy (principal); N81.6 Rectocele; N81.10 Cystocele, unspecified
CPT/HCPCS: 81001